=== PATIENT | male | born 1975 | race Caucasian/White ===

== ENCOUNTER 2017-06-04 16:18 | Inpatient (IN) | payer MEDICARE, MEDICAID ==
[~2017-06-04] VITALS: Ht 165.1 cm; Wt 119.3 kg
[~2017-06-04 16:18] MED LIST: ASCORBIC ACID500 MG PO; BENADRYL25 MG PO; COLACE100 MG PO; DESERYL100 MG PO; FISH OIL 1,2001 CA1 PO; GLUCOPHAGE500 MG PO; HYDROCHLOROTH12.5 M1 PO; LANTUS SOL100 UNIT/1 SQ; LISINOPRIL5 MG PO; NEURONTIN800 MG PO; NEXIUM40 MG PO; NOVOLOG100 U/M1 SQ; VITAMIN D2000 UNIT PO
[2017-06-04 18:16] LABS: BASOPHILS 0.3 % (0-2); EOSINOPHILS 1.9 % (0-7); HEMATOCRIT 41.7 % (42.0-54.0); HEMOGLOBIN 13.5 g/dL (13.5-17.5); IMMATURE GRANULOCYTES 0.8 % (0-5); LYMPHOCYTES 44.9 % (15-50); MCH 28.2 pg (26.0-34.0); MCHC 32.4 g/dL (31.0-37.0); MCV 87.1 fL (80.0-100.0); MEAN PLATELET VOLUME 9.9 fL (7.4-10.4); MONOCYTES 7.9 % (2-11); NEUTROPHILS 44.2 % (40-80); PLATELET COUNT 189 10x3/uL (130-400); RBC 4.79 10x6/uL (4.20-6.10); WBC 8.6 10x3/uL (4.8-10.8)
[2017-06-04 18:30] LABS: ALBUMIN 3.8 g/dL (3.4-5.0); ALKALINE PHOSPHATASE 114 U/L (46-116); ALT (SGPT) 46 U/L (10-68); BILIRUBIN - TOTAL 0.16 mg/dL (0.2-1.3); CALCIUM 10.7 mg/dL (8.5-10.1); CARBON DIOXIDE 32.4 mmol/L (21.0-32.0); CHLORIDE - SERUM 102 mmol/L (98-107); CREATININE - SERUM 0.8 mg/dL (0.6-1.3); POTASSIUM - SERUM 4.4 mmol/L (3.5-5.1); PROTEIN - SERUM 7.2 g/dL (6.4-8.2); SODIUM 140 mmol/L (136-145); UREA NITROGEN 15 mg/dL (7-18); eGFR NON AFRICAN AMERICAN > 90 mL/min (90-120)
[2017-06-04 18:35] LABS: CREATINE KINASE 181 UL (21-232)
[2017-06-04 18:37] LABS: CALC OSMOLALITY 285 mosm/kg (275-300); GLUCOSE 198 mg/dL (74-106); TROPONIN-I < 0.017 ng/mL (0.000-0.060)
[2017-06-05 04:45] LABS: BASOPHILS 0.2 % (0-2); HEMATOCRIT 40.6 % (42.0-54.0); HEMOGLOBIN 13.1 g/dL (13.5-17.5); IMMATURE GRANULOCYTES 1.1 % (0-5); LYMPHOCYTES 46.3 % (15-50); MCH 28.3 pg (26.0-34.0); MCHC 32.3 g/dL (31.0-37.0); MCV 87.7 fL (80.0-100.0); MEAN PLATELET VOLUME 9.9 fL (7.4-10.4); MONOCYTES 9.9 % (2-11); NEUTROPHILS 40.5 % (40-80); PLATELET COUNT 200 10x3/uL (130-400); RBC 4.63 10x6/uL (4.20-6.10); RDW 14.2 % (11.5-14.5)
[2017-06-05 05:03] LABS: ALBUMIN 3.5 g/dL (3.4-5.0); ALKALINE PHOSPHATASE 93 U/L (46-116); ALT (SGPT) 47 U/L (10-68); BILIRUBIN - TOTAL 0.29 mg/dL (0.2-1.3); CALC OSMOLALITY 286 mosm/kg (275-300); CALCIUM 10.6 mg/dL (8.5-10.1); CARBON DIOXIDE 32.8 mmol/L (21.0-32.0); CHLORIDE - SERUM 104 mmol/L (98-107); CREATININE - SERUM 0.8 mg/dL (0.6-1.3); GLUCOSE 186 mg/dL (74-106); POTASSIUM - SERUM 4.3 mmol/L (3.5-5.1); PROTEIN - SERUM 6.6 g/dL (6.4-8.2); SODIUM 141 mmol/L (136-145); UREA NITROGEN 15 mg/dL (7-18); eGFR NON AFRICAN AMERICAN > 90 mL/min (90-120)
[2017-06-05 07:15] LABS: APPEARANCE CLEAR (CLEAR); BILIRUBIN NEGATIVE (NEGATIVE); COLOR YELLOW (YELLOW); GLUCOSE NEGATIVE (NEGATIVE); KETONE NEGATIVE (NEGATIVE); NITRITE NEGATIVE (NEGATIVE); PROTEIN NEGATIVE (NEGATIVE); UROBILINOGEN NORMAL (NORMAL)
[2017-06-05 07:16] LABS: BACTERIA MANY /hpf (NONE SEEN); EPITHELIAL CELLS NSEEN /hpf (0-5); RED CELLS - URINE 0-5 /hpf (0-5); WHITE CELLS - URINE NSEEN /hpf (0-5)
[2017-06-05 08:16] VITALS: BP 123/68
[2017-06-05 11:26] VITALS: BMI 43.7
[2017-06-05 11:46] VITALS: Ht 165.1 cm; Wt 119.3 kg
[2017-06-05] MEDS ORDERED: AUGMENTIN 875-11 TAB PO (11:49)
[2017-06-05] MEDS ORDERED: TOPAMAX50 MG PO (11:50)
[2017-06-05 12:11] VITALS: BP 129/72
[2017-06-05 15:26] VITALS: BP 132/70
== END 2017-06-05 17:21 | disposition home or self-care (01) | DRG 103 ==
LOC: D.ER 16:18 → D.MS 23:01
PROVIDERS: Emergency Medicine; Family Medicine
PROC: 00JU3ZZ Inspection of Spinal Canal, Percutaneous Approach (ICD-10-PCS; principal; 2017-06-04)
DX: R51 Headache (principal); E11.9 Type 2 diabetes mellitus without complications; I10 Essential (primary) hypertension